=== PATIENT | male | born 1955 | race Caucasian/White ===

== ENCOUNTER 2017-02-10 14:56 | Outpatient (CLI) | payer SELFPAY ==
[~2017-02-10 14:56] MED LIST: COQ-10100 MG PO; FISH OIL1000 M1; LISINOPRIL10 MG PO; NORCO1 TA1 PO; XARELTO10 MG PO
--- NOTE | 2017-02-10 16:19 | DIAGNOSTIC IMAGING REPORT ---
PROCEDURE: US VENOUS - LEFT EXT INDICATION: PAIN BEHIND LEFT KNEE TECHNIQUE: Duplex sonography of the deep venous system in the left lower extremity was performed. Compression and augmentation techniques were used. COMPARISON: None. FINDINGS: Each interrogated segment of deep vein from the common femoral vein into the calf veins demonstrates normal compressibility, augmentation and/or color Doppler flow without filling defect. There is a Boswell's cyst in the medial popliteal fossa which measures of 5.9 x 3.6 x 2 cm IMPRESSION: 1. No deep venous thrombosis in the left lower extremity. 2. Boswell's cyst medial left popliteal fossa
== END 2017-02-10 23:00 ==
LOC: US SRH 14:56
DX: M71.22 Synovial cyst of popliteal space [Baker], left knee (principal)